=== PATIENT | male | born 1960 | race African-American/Black ===

== ENCOUNTER 2016-12-18 07:46 | Emergency (ER) | payer MEDICAID ==
[~2016-12-18] VITALS: Ht 172.7 cm; Wt 79.5 kg
[2016-12-18 08:06] VITALS: BP 140/102
[2016-12-18] MEDS ORDERED: HYDROCODONE/ACETAMINOPHEN 10-325 MG TABLET PO ONE (12:30)
[2016-12-18 12:44] LABS: GLUCOSE, URINE (UA) NEGATIVE (NEGATIVE); KETONES,URINE NEGATIVE (NEGATIVE); LEUKOCYTE ESTERASE ,URINE NEGATIVE (NEGATIVE); OCCULT BLOOD,URINE MODERATE (NEGATIVE); PROTEIN,URINE POS 1+ (NEGATIVE)
[2016-12-18 12:48] LABS: ADD UA MICROSCOPIC YES
[2016-12-18 12:49] LABS: APPEARANCE,URINE HAZY (CLEAR)
[2016-12-18 13:00] LABS: SQUAMOUS EPITHELIAL CELL,UR Few /LPF (None Seen); WBC,URINE 0-2 /HPF (0-5)
[2016-12-18 13:02] LABS: HYALINE CASTS, URINE 0-2 /LPF (None Seen)
== END 2016-12-18 13:36 | disposition home or self-care (01) ==
LOC: EMS 07:48
DX: S33.5XXA Sprain of ligaments of lumbar spine, initial encounter (principal); M62.830 Muscle spasm of back; G89.29 Other chronic pain; F12.10 Cannabis abuse, uncomplicated; J45.909 Unspecified asthma, uncomplicated; X58.XXXA Exposure to other specified factors, initial encounter; Y93.89 Activity, other specified; Y92.89 Other specified places as the place of occurrence of the external cause; Y99.8 Other external cause status
CPT/HCPCS: 99283